=== PATIENT | female | born 1950 | race African-American/Black ===

== ENCOUNTER 2018-09-07 09:43 | Inpatient (IN) | payer OTHER ==
[~2018-09-07] VITALS: Ht 149.9 cm; Wt 95.3 kg
[~2018-09-07 09:43] MED LIST: ALLO100T21 PO; FURO20TA8 PO; NIFE-144 PO; OLME20TA11 PO; OMEP20TC12 PO; THYR90TA PO; [UNRECOGNIZED DRUG - CODE] PO
[2018-09-07 09:53] VITALS: BP 122/81
--- NOTE | 2018-09-07 10:30 | NUR ---
C/O FEEL WEAK, LEFT NECK PAIN RADIATING TO LEFT SHOULDER X 3 DAYS. HEMATURIA X LAST NIGHT. LAST URINE 5 MINS AGO : CLEAR ,YELLOW. DENIES URINARY BURNING SENSATION. BLL : SLIGHTLY SWELLING.DENIES TRAUMA, N/V/D. LAST BM NORMAL LAST NIGHT. HX;DM, HYPOTHYRIOD,CHF,HTN, SLEEP APNEA . DENIES N/V/D; SKIN IS PINK/WARM/DRY; AWAKE,ALERT. LUNGS CLEAR BL; HR EVEN AND REGULAR; PT DENIES ANY FEVER, CP, SOB, OR COUGH AT THIS TIME; PATIENT STATES PAIN OF 8/10 AT THIS TIME; VSS; PATIENT POSITIONED FOR COMFORT; HOB ELEVATED; BEDRAILS UP X2; BED DOWN. ER MD MADE AWARE OF PT STATUS.
[2018-09-07] MEDS ORDERED: NACL 0.9% 500 ML IV SCH (11:25)
[2018-09-07] MEDS ORDERED: HYDROcodone/APAP 5/325 MG 1 TAB TAB PO ONE (11:25)
[2018-09-07] MEDS ORDERED: KETOROLAC 60 MG/2 ML VIAL IM ONE (11:25)
--- NOTE | 2018-09-07 11:26 | NUR ---
PT REFUSED TORADOL AND NORCO.
[2018-09-07 12:55] LABS: ANION GAP 9.2 (8-16); CARBON DIOXIDE 31.1 mmol/L (21-32); CREATININE 0.7 mg/dL (0.6-1.3); POTASSIUM 3.3 mmol/L (3.5-5.1)
[2018-09-07 13:01] LABS: ALBUMIN 3.3 g/dL (3.4-5.0); TOTAL BILIRUBIN 0.4 mg/dL (0.0-1.0)
[2018-09-07 13:07] LABS: PROTHROMBIN TIME 9.8 secs (10.8-13.4)
--- NOTE | 2018-09-07 13:19 | NUR ---
FLU SPECIMEN COLLECTED AND GIVEN TO MARCELINA LÓPEZ
[2018-09-07 13:28] LABS: BASOPHILS # (AUTO) 0.1 K/uL (0.00-0.22); BASOPHILS % (AUTO) 0.5 % (0.0-2.0); EOSINOPHILS # (AUTO) 0.2 K/uL (0-0.4); EOSINOPHILS % (AUTO) 2.2 % (0.0-4.0); HEMATOCRIT 42.3 % (36-48); HEMOGLOBIN 13.5 g/dL (12.0-16.0); LYMPHOCYTES # (AUTO) 2.7 K/uL (2.5-16.5); LYMPHOCYTES % (AUTO) 24.5 % (20.5-51.1); MEAN CORPUSCULAR HEMOGLOBIN 27 pg (27-31); MEAN CORPUSCULAR HGB CONC 32 g/dL (33-37); MEAN CORPUSCULAR VOLUME 85.7 fL (80-94); MONOCYTES # (AUTO) 0.7 K/uL (0.8-1.0); MONOCYTES % (AUTO) 6.1 % (1.7-9.3); NEUTROPHILS # (AUTO) 7.4 K/uL (1.8-7.7); NEUTROPHILS % (AUTO) 66.7 % (42.2-75.2); PLATELET COUNT (AUTO) 200 K/uL (140-450); RED BLOOD CELL COUNT(AUTO) 4.93 MIL/uL (4.20-5.40); RED CELL DISTRIBUTION WIDTH 14.2 % (11.6-13.7); WHITE BLOOD COUNT (AUTO) 11.1 K/uL (4.8-10.8)
[2018-09-07 13:42] LABS: MAGNESIUM 2.1 mg/dL (1.8-2.4); URIC ACID 6.1 mg/dL (2.6-7.2)
[2018-09-07 16:18] LABS: APPEARANCE,URINE CLEAR (CLEAR); BILIRUBIN,URINE NEGATIVE (NEGATIVE); BLOOD, URINE NEGATIVE (NEGATIVE); COLOR,URINE YELLOW (YELLOW); LEUKOCYTE ESTERASE ,URINE NEGATIVE (NEGATIVE); NITRITE, URINE NEGATIVE (NEGATIVE); UGLUCOSE NEGATIVE (NEGATIVE)
[2018-09-07 16:41] LABS: FREE T4 (FREE THYROXINE) 1.45 ng/dL (0.76-1.46); THYROID STIMULATING HORMONE 0.48 uIU/mL (0.34-3.74)
--- NOTE | 2018-09-07 18:03 | NUR ---
CALLED [facility] TO BEGIN ADMISSION PROCESS. AWAITING CALL BACK FROM DR BARRY AT THIS TIME.
--- NOTE | 2018-09-07 19:13 | NUR ---
ENDORSED PT TO PM NURSE
[2018-09-07] MEDS ORDERED: MORPHINE SULFATE 2 MG/ML SYR IVP PRN (19:50)
[2018-09-07] MEDS ORDERED: ONDANSETRON 4 MG/2 ML VIAL IVP PRN (19:50)
[2018-09-07] MEDS ORDERED: ACETAMINOPHEN 325 MG TAB PO PRN (19:50)
[2018-09-07] MEDS ORDERED: HYDROcodone/APAP 5/325 MG 1 TAB TAB PO PRN (19:50)
[2018-09-07] MEDS ORDERED: INSULIN LISPRO SLIDING SCALE 100 UNITS/ML VIAL SUBQ PRN (19:50)
[2018-09-07] MEDS ORDERED: DEXTROSE 50% 50 ML SYR IVP PRN (19:50)
[2018-09-07 21:00] VITALS: BP 117/52
--- NOTE | 2018-09-07 21:00 | NUR ---
RECEIVED PT FROM REMINGTON SHELTON RN GIVE A REPORT AT BED SIDE PT IS AAOX4 AMBULATORY HL ON LEFT AC PATENT, ON TELEMETRY SR, DENIES ANY CHEST PAIN ON ADMISSION, PT IS ;ORIENTED TO THE FLOOR CALL LIGHT WITHIN REACH
--- NOTE | 2018-09-07 21:05 | NUR ---
PT TRANSFERRED TO ROOM 119-B FOR ADMISSION. REPORT GIVEN TO MARY LOPEZ. VSPiotr.
[2018-09-07] MEDS: BLOOD GLUCOSE MONITORING 1 DEV DEV FS SCH (21:46)
[2018-09-07 22:00] LABS: CREATINE KINASE MB 0.7 ng/mL (0-3.6)
--- NOTE | 2018-09-07 22:00 | NUR ---
BLOOD SUGAR TEST TAKEN 170 COVERAGE WITH 2 UNITS HUMALOG SUBQ FOLLOW PROTOCOL
[2018-09-08] VITALS: BP 102/52
--- NOTE | 2018-09-08 01:00 | NUR ---
PT IS ASSISTED TO USED BSC NOT DISTRESS NOTED DENIES ANY PAIN ; ON TELEMETRY SB
[2018-09-08 04:00] VITALS: BP 128/67
--- NOTE | 2018-09-08 04:45 | NUR ---
SLPONGE BATH GIVEN LINEN CHANGED ON TELMETRY SR NOT DISTRESS NOTED
[2018-09-08] MEDS: BLOOD GLUCOSE MONITORING 1 DEV DEV FS SCH ×2 (05:42→11:30)
--- NOTE | 2018-09-08 05:46 | NUR ---
BLOOD SUGAR TEST 100 NOT COVERAGE PT REMAIN STABLE NOT CHEST PAIN NOT SOB NOTED, ONN TELEMETRY SR
--- NOTE | 2018-09-08 06:10 | NUR ---
PT SLEEPING NOT SOB NOTED REMAIN STABLE AST THIS TIME PT WILL BE ENDORSED TO DAY SHIFT NURSE FOR CONTINUITY OF CARE DENIES ANY CHEST PAIN
[2018-09-08 06:26] LABS: CREATINE KINASE MB 0.5 ng/mL (0-3.6)
[2018-09-08 07:12] LABS: ANION GAP 11.3 (8-16); CREATININE 0.6 mg/dL (0.6-1.3); POTASSIUM 3.3 mmol/L (3.5-5.1)
[2018-09-08 07:13] LABS: ALBUMIN 2.9 g/dL (3.4-5.0); TOTAL BILIRUBIN 0.4 mg/dL (0.0-1.0)
--- NOTE | 2018-09-08 07:30 | NUR ---
RECEIVED PT AAOX4. NO SOB NOTED. NO C/O PAIN AT THIS TIME. IV TO LT AC PATENT AND INTACT. CHEST, DIMINISHED AIR ENTRY TO THE BASES, ABDOMEN SOFT, BOWEL SOUNDS PRESENT. INSTRUCTED PT TO CALL FOR ASSISTANCE, CALL LIGHT WITHIN REACH, VERBALIZED UNDERSTANDING.
[2018-09-08 08:00] VITALS: BP 148/83
--- NOTE | 2018-09-08 08:17 | NUR ---
PATIENT HAS BEEN SCREENED AND CATEGORIZED HIGH NUTRITION RISK. PATIENT WILL BE SEEN WITHIN 1-2 DAYS OF ADMISSION. 09/08/18-09/09/[address]
[2018-09-08 08:21] LABS: BASOPHILS % (AUTO) 0.3 % (0.0-2.0); EOSINOPHILS # (AUTO) 0.3 K/uL (0-0.4); EOSINOPHILS % (AUTO) 3.3 % (0.0-4.0); HEMATOCRIT 40.2 % (36-48); HEMOGLOBIN 12.8 g/dL (12.0-16.0); LYMPHOCYTES # (AUTO) 2.9 K/uL (2.5-16.5); LYMPHOCYTES % (AUTO) 26.9 % (20.5-51.1); MEAN CORPUSCULAR HEMOGLOBIN 28 pg (27-31); MEAN CORPUSCULAR HGB CONC 32 g/dL (33-37); MEAN CORPUSCULAR VOLUME 86.5 fL (80-94); MONOCYTES # (AUTO) 0.6 K/uL (0.8-1.0); MONOCYTES % (AUTO) 5.9 % (1.7-9.3); NEUTROPHILS # (AUTO) 6.8 K/uL (1.8-7.7); NEUTROPHILS % (AUTO) 63.6 % (42.2-75.2); PLATELET COUNT (AUTO) 189 K/uL (140-450); RED BLOOD CELL COUNT(AUTO) 4.65 MIL/uL (4.20-5.40); RED CELL DISTRIBUTION WIDTH 14.6 % (11.6-13.7); WHITE BLOOD COUNT (AUTO) 10.7 K/uL (4.8-10.8)
[2018-09-08] MEDS ORDERED: NIFEdipine 30 MG TABER PO SCH (09:00)
[2018-09-08] MEDS ORDERED: ENOXAPARIN 40 MG/0.4 ML SYR SUBQ SCH (09:00)
[2018-09-08] MEDS ORDERED: PANTOPRAZOLE 40 MG TABEC PO SCH (09:00)
[2018-09-08] MEDS ORDERED: ASPIRIN 81 MG TAB.CHEW PO SCH (09:00)
[2018-09-08] MEDS ORDERED: ALLOPURINOL 100 MG TAB PO SCH (09:00)
[2018-09-08] MEDS ORDERED: THYROID 60 MG TAB PO SCH (09:00)
[2018-09-08] MEDS ORDERED: FUROSEMIDE 20 MG TAB PO SCH (09:00)
--- NOTE | 2018-09-08 09:00 | NUR ---
DR. RUBALCAVA CAME TO SEE PT. D/C ORDERS GIVEN.
--- NOTE | 2018-09-08 11:00 | NUR ---
PT STATED HER GRANDSON WILL BE ABLE TO PICK HER UP BEFORE 3 PM TODAY.
[2018-09-08] MEDS ORDERED: LORA10TA19 PO (11:25)
[2018-09-08] MEDS ORDERED: ASPI-1718 PO (11:26)
[2018-09-08 12:00] VITALS: BP 137/73
--- NOTE | 2018-09-08 14:30 | NUR ---
DISCHARGE INSTRUCTIONS AND PRESCRIPTIONS GIVEN TO PT WHICH VERBALIZED FULL UNDERSTANDING OF THE TEACHINGS AND INSTRUCTIONS GIVEN AND THE NEED TO FOLLOW UP WITH OWN PCP WITHIN 7 DAYS. PT STATED SHE WILL SEE DR. ORTA WITHIN 7 DAYS. ARM BANDS AND IV REMOVED, CANNULA TIP INTACT.
--- NOTE | 2018-09-08 14:55 | NUR ---
PT WHEELED OUT TO THE ER PARKING LOT WHERE HER GRANDSON IS WAITING. NO SOB NOTED. NO COMPLAINTS. PT IS D/C HOME WITH FAMILY IN STABLE CONDITION.
== END 2018-09-08 14:55 | disposition home or self-care (01) | DRG 206 ==
LOC: MED 09:43 → MTU 19:51
PROVIDERS: ADMIT Internal Medicine; ATTEND Internal Medicine
DX: M94.0 Chondrocostal junction syndrome [Tietze] (principal); Z68.41 Body mass index [BMI] 40.0-44.9, adult; J31.0 Chronic rhinitis; E66.01 Morbid (severe) obesity due to excess calories; G47.30 Sleep apnea, unspecified; E03.9 Hypothyroidism, unspecified; E11.9 Type 2 diabetes mellitus without complications; I50.9 Heart failure, unspecified; I11.0 Hypertensive heart disease with heart failure; Z88.0 Allergy status to penicillin; Z88.8 Allergy status to other drugs, medicaments and biological substances; Z91.010 Allergy to peanuts; J06.9 Acute upper respiratory infection, unspecified
CPT/HCPCS: 36415; 36600; 71045; 80053; 81003; 82550; 82553; 82803; 82948; 83605; 83735; 83880; 84439; 84443; 84479; 84484; 84550; 85025; 85379; 85610; 85730; 87040; 87081; 87086; 87804; 93005; 99285; J1650; J1815; J1885; Q0092

== ENCOUNTER 2019-09-22 10:49 | Emergency (ER) | payer OTHER ==
[~2019-09-22] VITALS: Ht 149.9 cm; Wt 96.7 kg
[~2019-09-22 10:49] MED LIST changes: +ASPI-1822 PO; +LORA10TA19 PO
[2019-09-22 10:55] VITALS: BP 135/60
--- NOTE | 2019-09-22 11:00 | NUR ---
PT TAKEN TO ER BED 10 VIA W/C
--- NOTE | 2019-09-22 11:10 | NUR ---
69 Y/O FEMALE PRESENTS WITH SOB, WHEEZING X 2 DAYS. C/O OF PRODUCTIVE COUGH WITH YELLOW PHLEGM. DIARRHEA X 2 DAYS. DENIES VOMITING, NAUSEA. NC 2L/MIN. R/R EQUAL, AND UNLABORED. SYMMETRICAL CHEST RISE AND FALL. SIDERAIL X2, WILL CONTINUE TO MONITOR PMH: COPD, CHF, HYPOTHYROIDISM, DM, HTN ALLERGY: PENICILLIN
[2019-09-22] MEDS ORDERED: AZIT250T3 PO (11:15)
[2019-09-22] MEDS ORDERED: ALBUTEROL SULFATE/IPRATROPIU 3 ML SOL IH ONE ×2 (11:30→12:55)
[2019-09-22] MEDS ORDERED: ALBUTEROL 0.083% 2.5 MG/3 ML NEBU INH ONE ×2 (11:30→12:55)
[2019-09-22] MEDS ORDERED: predniSONE 20 MG TAB PO ONE (11:30)
--- NOTE | 2019-09-22 11:36 | NUR ---
ADMINISTERED [facility] THERAPY AND RESPIRATORY DRUGS ORDERED ENCOURAGED PATIENT OF INTERMITTENT DEEP BREATHING AND COUGH
--- NOTE | 2019-09-22 12:30 | NUR ---
PT RESTING IN BED AWAKE AND ALERT. STATES EASIER WORK OF BREATHING AFTER BREATHING TREATMENT. RR EVEN AND UNLABORED, REMAINS ON MONITOR. WILL CONTINUE TO MONITOR
--- NOTE | 2019-09-22 12:50 | NUR ---
PT C/O MILD SOB/WHEZZING AFTER 1 HHN PT STS " I NEED A 2ND TX" ER MD DR MINER NOTIFTED, ALL ORDER EXECUTED.
--- NOTE | 2019-09-22 12:59 | NUR ---
Respiratory Therapist at bedside for respiratory intervention. Patient tolerated .
--- NOTE | 2019-09-22 13:33 | NUR ---
PT STATES SHE IS HAVING BILATERAL EAR PAIN. DR MINER MADE AWARE
--- NOTE | 2019-09-22 13:51 | NUR ---
DR MINER AT BEDSIDE RE-EVALUATING PT
[2019-09-22 14:13] VITALS: BP 112/56
--- NOTE | 2019-09-22 14:15 | NUR ---
Patient discharged with v/s stable. Written and verbal after care instructions given and explained. Patient alert, oriented and verbalized understanding of instructions. Wheel Chair Assisted with to car. All questions addressed prior to discharge. ID band removed. Patient advised to follow up with PMD. Rx of MOTRIN, PREDNISONE given. Patient educated on indication of medication including possible reaction and side effects. Opportunity to ask questions provided and answered.
== END 2019-09-22 14:15 | disposition home or self-care (01) ==
LOC: MED 10:49
DX: J44.1 Chronic obstructive pulmonary disease with (acute) exacerbation (principal); E11.9 Type 2 diabetes mellitus without complications; I11.0 Hypertensive heart disease with heart failure; I50.9 Heart failure, unspecified; E03.9 Hypothyroidism, unspecified; Z79.84 Long term (current) use of oral hypoglycemic drugs; Z79.82 Long term (current) use of aspirin; Z79.899 Other long term (current) drug therapy; Z91.010 Allergy to peanuts; Z88.0 Allergy status to penicillin; Z91.018 Allergy to other foods
CPT/HCPCS: 71045; 81002; 94640; 99284; J7512; J7613; Q0092